=== PATIENT | male | born 1980 | race Caucasian/White ===

== ENCOUNTER 2019-03-28 14:06 | Outpatient (CLI) | payer OTHER ==
[2019-03-28 19:27] LABS: BASOPHILS # (AUTO) 0.1 10^3/uL (0.0-0.1); BASOPHILS % (AUTO) 0.8 %; EOSINOPHILS # (AUTO) 0.2 10^3/uL (0.0-0.7); EOSINOPHILS % (AUTO) 2.1 %; HGB - HEMOGLOBIN 13.8 g/dL (14.0-18.0); LYMPHOCYTES # (AUTO) 1.6 10^3/uL (1.5-3.5); LYMPHOCYTES % (AUTO) 22.1 %; MEAN CORPUSCULAR HEMOGLOBIN 30.2 pg (27.0-31.0); MEAN CORPUSCULAR HGB CONC 33.7 g/dL (32.0-36.0); MEAN CORPUSCULAR VOLUME 89.7 fL (80.0-94.0); MEAN PLATELET VOLUME 9.6 fL (7.4-11.4); MONOCYTES # (AUTO) 0.8 10^3/uL (0.0-1.0); MONOCYTES % (AUTO) 10.4 %; NEUTROPHILS # (AUTO) 4.7 10^3/uL (1.5-6.6); NEUTROPHILS % (AUTO) 64.3 %; PLT - PLATELET COUNT 361 10^3/uL (130-450); RED BLOOD COUNT 4.57 10^6/uL (4.70-6.10); RED CELL DISTRIBUTION WIDTH 12.8 % (12.0-15.0); WHITE BLOOD COUNT 7.2 x10^3/uL (4.8-10.8)
[2019-03-28 19:37] LABS: CALCIUM 8.8 mg/dL (8.5-10.3); CREATININE 0.9 mg/dL (0.6-1.2)
== END 2019-03-28 23:59 | disposition home or self-care (01) ==
LOC: LAB.N 14:06
PROVIDERS: ATTEND Physician Assistant Medical
DX: R03.0 Elevated blood-pressure reading, without diagnosis of hypertension (principal)
CPT/HCPCS: 36415; 80048; 84443; 85025

== ENCOUNTER 2020-09-26 22:03 | Emergency (ER) | payer SELFPAY ==
--- NOTE | 2020-09-26 22:27 | ED Physician Documentation ---
PD HPI LOWER EXT INJURY - Stated complaint Stated Complaint: R KNEE PX - Chief complaint Chief Complaint: Ext Problem - History obtained from History obtained from: Patient - History of Present Illness PD HPI LOW EXT INJURY LOCATION: Right, Knee Type of injury: Twist (he was playing basketball and pivoted on foot, with pain and giving out in knee. Still hurts. Has had similar in the past, with certain movements of the knee (typically with some bending or twist) and will hurt for few days.) Timing - onset: Today Timing - details: Abrupt onset, Still present Worsened by: Moving. No: Palpating Associated symptoms: No: Weakness, Numbness, Swelling (does not develop effusion with past episdoes.) Similar symptoms before: No diagnosis (similar pains with twist or bend at times. Will hurt for days or more then improve.) Recently seen: Not recently seen Review of Systems Musculoskeletal: denies: Joint swelling Neurologic: denies: Focal weakness, Numbness PD PAST MEDICAL HISTORY - Past Medical History Cardiovascular: None Musculoskeletal: None - Past Surgical History Past Surgical History: Yes General: Appendectomy - Present Medications Home Medications: Ambulatory Orders Medication Instructions Recorded Confirmed No Known Home Medications 08/20/12 08/20/12 - Allergies Allergies/Adverse Reactions: Allergies Allergy/AdvReac Type Severity Reaction Status Date / Time No Known Drug Allergies Allergy Verified 09/26/20 22:07 - Social History Does the pt smoke?: Yes Smoking Status: Current every day smoker Does the pt drink ETOH?: Yes Does the pt have substance abuse?: Yes - Immunizations Immunizations are current?: No Immunizations: TDAP current <10years PD ED PE NORMAL - Vitals Vital signs reviewed: Yes - General General: Alert and oriented X 3, No acute distress, Well developed/nourished - Derm Derm: Normal color, Warm and dry - Extremities Extremities: Other (No effusion right knee. Ligament testing normal for collateral/cruciates. Impaction testing hurts. No click nor grinding on passive ROM. Not tender around kneecap. ) - Neuro Neuro: No motor deficit, No sensory deficit Results - Vitals Vitals: Vital Signs - 24 hr 09/26/20 09/26/20 22:07 23:55 Temperature 36.9 C 36.6 C Heart Rate 100 95 Respiratory 16 16 Rate Blood Pressure 160/100 H 154/98 H O2 Saturation 98 100 Oxygen O2 Source Room air - Rads (name of study) right knee Radiology: Prelim report reviewed (normal xray), See rad report PD MEDICAL DECISION MAKING - ED course Complexity details: re-evaluated patient (he did not want the inged brace, though would be better for him longer term with function. ), considered differential (seems most likely recurrent meniscal flap/tear. ), d/w patient Departure - Departure Disposition: 01 Home, Self Care Clinical Impression: Acute knee pain Qualifiers: Laterality: right Qualified Code(s): M25.561 - Pain in right knee Acute meniscal injury of knee Qualifiers: Encounter type: initial encounter Laterality: right Qualified Code(s): S83.8X1A - Sprain of other specified parts of right knee, initial encounter Condition: Stable Record reviewed to determine appropriate education?: Yes Instructions: ED Meniscal Injury Knee Poss Follow-Up: Myron Young MD [Provider Admit Priv/Credential] - Comments: Your knee problem sounds like a recurrent small flap or tear of the meniscus that dislodges every now and then causing the pain episodes. It does not sound like a cruciate or collateral ligament or tendon. I would use the hinged knee brace which is slight range of motion to begin with from 0 to 20 degrees. Do this for several days to a week until the knee is feeling better and then you can adjust it to 0 to 90 degrees. When you are up and walking and active to reduce the chance of recurrence. Ibuprofen or naproxen 3 times daily for the next several days and add Tylenol if needed for pain. You can follow-up with orthopedics for reexamination of the knee and further assessment to see if there is any more of a "fix" for the recurrent problem. Discharge Date/Time: 09/26/20 23:55
[2020-09-26] MEDS: IBUPROFEN 600 MG TABLET PO STA ×2 (22:58→23:00)
[2020-09-26] MEDS: ACETAMINOPHEN 325 MG TABLET PO STA ×2 (22:58→23:00)
--- NOTE | 2020-09-26 23:00 | XRAY Report ---
PROCEDURE: Knee 4 View RT INDICATIONS: Trauma TECHNIQUE: 5 views of the right knee(s) were acquired. COMPARISON: None. FINDINGS: Bones: No fractures or dislocations. No suspicious bony lesions. Soft tissues: Trace joint effusion. No suspicious soft tissue calcifications. IMPRESSION: No acute osseous abnormality. Reviewed by: Ayden Valadez MD on 09/26/2020 10:59 PM PDT Approved by: Ayden Valadez MD on 09/26/2020 10:59 PM PDT Station ID: [id number]
[2020-09-26 23:59] VITALS: BP 154/98
== END 2020-09-26 23:55 | disposition home or self-care (01) ==
LOC: ED 22:03
DX: S83.8X1A Sprain of other specified parts of right knee, initial encounter (principal); X50.1XXA Overexertion from prolonged static or awkward postures, initial encounter; Y93.67 Activity, basketball; F17.200 Nicotine dependence, unspecified, uncomplicated
CPT/HCPCS: 99283